=== PATIENT | female | born 1995 | race African-American/Black ===

== ENCOUNTER 2021-08-06 12:52 | Emergency (ER) | payer BC, MEDICAID ==
[~2021-08-06] VITALS: Ht 167.6 cm; Wt 110.0 kg
[2021-08-06 13:18] VITALS: BP 126/78
[2021-08-06 16:48] LABS: BASOPHILS % 0.3 % (0.0-2.0); EOSINOPHILS % 0.4 % (0.0-5.0); HEMATOCRIT. 35.5 % (36.0-48.0); LYMPHOCYTES % 23.5 % (20.0-50.0); MEAN CORPUSCULAR HEMOGLOBIN 30.2 pg (28.0-32.0); MEAN CORPUSCULAR VOLUME 89.8 fL (81.0-99.0); NEUTROPHILS % 68.8 % (40.0-76.0); PLATELET 224 x1000/uL (130-400); RED BLOOD CELL COUNT 3.96 mill/uL (4.2-5.4); RED CELL DISTRIBUTION WIDTH 13.6 % (11.6-14.6)
[2021-08-06 16:57] LABS: CHLORIDE 109 mEq/L (98-107)
[2021-08-06 17:06] LABS: HCG SCREEN POSITIVE
== END 2021-08-06 21:25 | disposition home or self-care (01) ==
LOC: ER 12:52
DX: R06.02 Shortness of breath (principal); O26.893 Other specified pregnancy related conditions, third trimester; Z3A.33 33 weeks gestation of pregnancy; Z20.822 Contact with and (suspected) exposure to COVID-19; Z98.890 Other specified postprocedural states
CPT/HCPCS: 36415; 71045; 76805; 76818; 80053; 81025; 83880; 84702; 84703; 85025; 87426; 93005; 93970; 99285; C9803